=== PATIENT | male | born 1945 | race Caucasian/White ===

== ENCOUNTER → 2016-11-01 | Outpatient (CLI) | payer OTHER, MEDICARE ==
[~2016-11-01] MED LIST: ACEBUTOLOL HCL400 MG PO; ATORVASTATIN CA40 MG PO; AZATHIOPRINE50 MG PO; CENTRUM SILVER1 EAC4 PO; CITRATE OF MAG300 ML PO; DESONIDE CR. 1515 GM; DILAUDID8 MG PO; FISH OIL 1,2001 EAC4 PO; HYDROCHLOROTHIA25 M2 PO; JANUVIA100 MG PO; KEPPRA 500 MG500 M1 PO; LISINOPRIL-HCT1 EAC1 PO; MILK OF MA2400 MG/10 PO; MIRALAX17 GM PO; NEURONTIN600 MG PO; NORTRIPTYLINE H50 M3 PO; NORVASC2.5 MG PO; OPANA ER30 M1 PO; POTASSIUM20 PO; PREDNISONE 10 M10 MG PO; PROCTOZONE-HC30 GM; PROTONIX40 M1 PO; REGLAN 10 MG TA10 MG PO; STOOL SOFTENER100 MG PO; SYMBICORT160 MCG/4. INH; TYLENOL PM EX-1 EACH PO; VENTOLIN HFA 1818 GM INH; VITAMIN B-121000 MCG PO; VITAMINC500 PO; ZANTAC 150MG T150 MG PO
== END ==
LOC: CAT 11:15
DX: C44.122 Squamous cell carcinoma of skin of right eyelid, including canthus (principal)